=== PATIENT | female | born 1985 | race Hispanic/Latino ===

== ENCOUNTER 2023-06-18 08:41 | Inpatient (IN) | payer BC, OTHER, SELFPAY ==
[2023-06-18] MEDS ORDERED: fentaNYL 50 mcg/mL 1 mL Vial ONE ×2 (08:58→09:21)
[2023-06-18] MEDS ORDERED: PROPOFOL 20 ML ONE ×2 (09:08→09:17)
[2023-06-18] MEDS ORDERED: KETAMINE 100 MG/ML (5ML VIAL) ONE (09:09)
[2023-06-18] MEDS ORDERED: Midazolam HCl 2 mg/2 ml Vial ONE (09:16)
[2023-06-18] MEDS ORDERED: Oxytocin 10 UNITS/ML VIAL ONE ×2 (09:26)
[2023-06-18] MEDS ORDERED: HYDROcodone/Acetaminophen 5/325 mg Tablet PO PRN ×2 (09:30)
[2023-06-18] MEDS ORDERED: CEFAZOLIN 2 GM in Sodium Chloride 0.9% 100 ML IVPB SCH (09:30)
[2023-06-18] MEDS ORDERED: Bisacodyl 10 MG SUPP PR PRN (09:30)
[2023-06-18] MEDS ORDERED: Milk Of Magnesia 30 ML UDCUP PO PRN (09:30)
[2023-06-18] MEDS ORDERED: Promethazine HCl 25 MG/ML VIAL IM PRN (09:30)
[2023-06-18] MEDS ORDERED: CEFAZOLIN 1 GM VIAL ONE ×2 (09:30→09:31)
[2023-06-18] MEDS ORDERED: Lactated Ringer's 1,000 ML IV PRN (09:30)
[2023-06-18] MEDS ORDERED: Benzocaine-Menthol 82.5 ML CAN TOP PRN (09:30)
[2023-06-18] MEDS ORDERED: Oxytocin 30 units/NS 500 ML 500 ML IV SCH ×2 (09:30)
[2023-06-18] MEDS ORDERED: fentaNYL 50 mcg/mL 1 mL Vial SLOW IVP PRN (09:30)
[2023-06-18] MEDS ORDERED: Boostrix 0.5 ML (Tdap) VIAL (>/=7 yrs of age) IM ONE (09:30)
[2023-06-18] MEDS ORDERED: Misoprostol 200 MCG TAB PR PRN (09:30)
[2023-06-18] MEDS ORDERED: Ondansetron PF 4 MG/2 ML Vial IVP PRN ×2 (09:30)
[2023-06-18] MEDS ORDERED: hydrALAZINE 20 MG/ML VIAL SLOW IVP PRN ×2 (09:30)
[2023-06-18 10:27] VITALS: BMI 37.9
[2023-06-18 10:58] LABS: Hematocrit 35.4 % (34.9-44.5); Hemoglobin 11.8 g/dL (12.0-15.5); Mean Corpuscular HGB CONC 33.3 g/dL (32.0-36.0); Mean Corpuscular Hemoglobin 29.7 pg (27.0-33.0); Mean Corpuscular Volume 89.2 fl (81.6-98.3); Mean Platelet Volume 11.6 fl (7.4-10.4); Platelet Count 239 10x3/uL (150-450); RBC Distribution Width 13.3 % (11.5-14.5); Red Blood Cell (RBC) Count 3.97 10x6/uL (3.90-5.03); White Blood Cell (WBC) Count 20.3 10x3/uL (3.5-10.5)
[2023-06-18 11:33] LABS: Syphilis Antibody Nonreactive (Nonreactive); Syphilis Antibody Index 0.07 S/CO (<1.00 Non-Reactive)
[2023-06-18 11:34] LABS: HBSAg Index 0.13 S/CO (0-0.99); Hep B Surf Ag - L&D Non-Reactive S/CO (NonReactive)
[2023-06-18] MEDS: Ferrous Sulfate 325 MG TAB PO SCH (13:59)
[2023-06-18] MEDS: Ibuprofen 800 MG TAB PO SCH ×2 (14:04→21:14)
[2023-06-18] MEDS: Docusate 100 MG CAP PO SCH (21:14)
[2023-06-19] MEDS: Ibuprofen 800 MG TAB PO SCH ×3 (05:17→22:01)
[2023-06-19] MEDS: Ferrous Sulfate 325 MG TAB PO SCH ×2 (09:21→18:58)
[2023-06-19] MEDS: Docusate 100 MG CAP PO SCH ×2 (09:50→22:01)
[2023-06-19] MEDS: Prenatal Vitamin 1 TAB PO SCH (09:50)
[2023-06-20] MEDS: Ibuprofen 800 MG TAB PO SCH (05:56)
[2023-06-20 08:00] VITALS: BP 113/74; TEMP 98.4
[2023-06-20] MEDS: Prenatal Vitamin 1 TAB PO SCH (08:48)
[2023-06-20] MEDS: Docusate 100 MG CAP PO SCH (08:48)
[2023-06-20] MEDS: Ferrous Sulfate 325 MG TAB PO SCH (08:49)
== END 2023-06-20 11:15 | disposition home or self-care (01) | DRG 769 ==
LOC: CSHLD 08:41 → CSHPP 13:42
PROVIDERS: ADMIT Obstetrics & Gynecology; ATTEND Obstetrics & Gynecology
PROC: 10D17Z9 Manual Extraction of Products of Conception, Retained, Via Natural or Artificial Opening (ICD-10-PCS; principal; 2023-06-19)
DX: O73.0 Retained placenta without hemorrhage (principal)
CPT/HCPCS: 36415; 51702; 85027; 86780; 86850; 86900; 86901; 87340; 99152; 99153; J0690; J2250; J2590; J2704; J3010; J3490